=== PATIENT | male | born 2000 | race Two or more races ===

== ENCOUNTER → 2024-06-28 | Day surgery (SDC) | payer OTHER ==
[~2024-06-28] VITALS: Ht 190.5 cm; Wt 131.5 kg
[~2024-06-28] MED LIST: DexAMETHasone SOD PHOS 10MG/1ML VIAL INJ ONE; FER325T PO; HYDROmorphone HCL 2 MG/ML VL/or syr IV PRN; KETAMINE 50mg/ML 1ml syringe ONE; KETOROLAC TROMETH 30 MG/ML 1ML VIAL IV ONE; LIDOCAINE 1% INJ PF 5ML AMP ONE; LIDOCAINE HCL 100 MG/5ML (2%) SYRG INJ IV ONE; LISI2.5T47 PO; MEPERIDINE HCL (50 MG/ML) 1 ML VIAL ONE; METOCLOPRAMIDE HCL 5MG/ml INJ 2ml VIAL IV ONE; MIDAZOLAM HCL 2MG/2ML 2ml VIAL (1mg/ml) ONE; MORPHINE SULFATE INJ 2 MG/ml SYRG IV PRN; ONDANSETRON HCL 4 MG/2 ML VIAL IV ONE; ONDANSETRON HCL 4 MG/2 ML VIAL ONE; PROPOFOL 10 MG/ML 20 ML IV ONE; SODIUM CHLORIDE LOCK 10 ML ONE; SUCCINYLCHOLINE CHLORIDE 20 MG/ML 10ML VIAL IV ONE; fentaNYL CITRATE 100 MCG/2 ML VL ONE
[2024-06-28] MEDS: LIDOCAINE VISCOUS 2% 15ML UD ONE (08:07)
[2024-06-28 08:34] VITALS: PULSE 111; RESP 24; O2SAT 95
[2024-06-28 08:35] VITALS: TEMP 98.3
[2024-06-28 09:05] VITALS: BP 135/83; PULSE 106; RESP 24; O2SAT 95
[2024-06-28 09:20] VITALS: PULSE 111; RESP 24; O2SAT 95
== END | disposition home or self-care (01) ==
LOC: GI 06:35
PROVIDERS: ATTEND Internal Medicine Gastroenterology
DX: D64.9 Anemia, unspecified (principal); K62.1 Rectal polyp; K29.50 Unspecified chronic gastritis without bleeding; K44.9 Diaphragmatic hernia without obstruction or gangrene; K64.8 Other hemorrhoids; K64.4 Residual hemorrhoidal skin tags; J45.909 Unspecified asthma, uncomplicated; I10 Essential (primary) hypertension; E66.01 Morbid (severe) obesity due to excess calories; Z79.899 Other long term (current) drug therapy; Z68.36 Body mass index [BMI] 36.0-36.9, adult
CPT/HCPCS: 43239; 45385; 88305; 88312; 88342; J0330; J1100; J2175; J2250; J2405; J2704; J3010; J7030